=== PATIENT | female | born 1990 | race Caucasian/White ===

== ENCOUNTER 2017-06-16 22:15 | Emergency (ER) | payer BC ==
[~2017-06-16] VITALS: Ht 167.6 cm; Wt 107.2 kg
[~2017-06-16 22:15] MED LIST: DOCU-131 PO; IBUP-1222 PO; OXYC-302 PO
[2017-06-16 22:59] LABS: HEMATOCRIT 41.6 % (34.6-47.8); HEMOGLOBIN 13.9 g/dL (11.7-16.4); WHITE BLOOD COUNT 11.7 x10^3/uL (3.4-10)
[2017-06-16] MEDS ORDERED: ACETAMINOPHEN 500 MG TABLET PO ONE (23:00)
[2017-06-16] MEDS ORDERED: KETOROLAC 30 MG/1 ML IVPush ONE (23:00)
[2017-06-16] MEDS ORDERED: ONDANSETRON 2MG/ML, 2ML IVPush ONE (23:00)
[2017-06-16] MEDS ORDERED: SODIUM CHLORIDE 0.9% 1,000ML IVBOLUS ONE (23:00)
[2017-06-16] MEDS ORDERED: SODIUM CHLORIDE FLUSH 10ML SYR IVF ONE (23:00)
[2017-06-16 23:07] LABS: RAPID INFLUENZA A Negative (Negative); RAPID INFLUENZA B Negative (Negative)
[2017-06-16 23:09] LABS: ASPARTATE AMINO TRANSFERASE 44 U/L (15-37); BLOOD UREA NITROGEN 10 mg/dL (7-18)
[2017-06-16] MEDS ORDERED: KETOROLAC 30 MG/1 ML ONE (23:20)
[2017-06-16] MEDS ORDERED: ACETAMINOPHEN 500 MG TABLET ONE (23:20)
[2017-06-16] MEDS ORDERED: ONDANSETRON 2MG/ML, 2ML ONE (23:21)
[2017-06-16 23:40] VITALS: BP 143/95
== END 2017-06-17 00:36 | disposition home or self-care (01) ==
LOC: ED 23:46
DX: R10.84 Generalized abdominal pain (principal); R11.2 Nausea with vomiting, unspecified
CPT/HCPCS: 36415; 71010; 80053; 84703; 85025; 87400; 96361; 96374; 96375; 99285; J1885; J2405; J7030

== ENCOUNTER 2017-10-30 10:47 | Emergency (ER) | payer BC ==
[~2017-10-30] VITALS: Ht 165.1 cm; Wt 100.3 kg
[2017-10-30 10:53] VITALS: BP 153/98
[2017-10-30] MEDS ORDERED: IBUPROFEN 200 MG TABLET ONE (11:30)
[2017-10-30] MEDS ORDERED: IBUPROFEN 800 MG TABLET PO SCH (11:30)
== END 2017-10-30 11:44 | disposition home or self-care (01) ==
LOC: ED 11:38
DX: J02.9 Acute pharyngitis, unspecified (principal)
CPT/HCPCS: 99283

== ENCOUNTER 2018-10-05 11:10 | Inpatient (IN) | payer BC, OTHER ==
[~2018-10-05] VITALS: Ht 165.1 cm; Wt 82.6 kg
--- NOTE | 2018-10-05 11:39 | NUR ---
PT PRESENTING TO ER FOR EPIGASTRIC PAIN AND VOMITING WHICH STARTED LAST NIGHT. REPORTING SLIGHT BURNING SENSATION. CONNECTED TO MONITORS, VSS. PT UP TO RESTROOM FOR URINE SAMPLE. CALL LIGHT WITHIN REACH. AWAITING ORDERS AT THIS TIME.
--- NOTE | 2018-10-05 11:48 | NUR ---
AT BEDSIDE FOR ASSESSMENT
[2018-10-05] MEDS ORDERED: MAALOX/HYOSCYAMINE/LIDOCAINE 45 ML BTL ONE (11:55)
[2018-10-05] MEDS ORDERED: MAALOX/HYOSCYAMINE/LIDOCAINE 45 ML BTL PO ONE (12:00)
[2018-10-05 12:06] LABS: HCG UR SG 1.043 (1.003-1.030); MICROSCOPIC AUTO
[2018-10-05 12:07] LABS: CULTURE INDICATED? NO
--- NOTE | 2018-10-05 12:10 | NUR ---
PT MEDICATED FOR PAIN. LABS COLLECTED. US AT BEDSIDE.
--- NOTE | 2018-10-05 12:18 | NUR ---
EMISIS X1, PT STATES IT WAS FROM US PUTTING PRESSURE ON EPIGASTRIC AREA AND NOT NAUSEA. DECLINGING NAUSEA MEDICATION AT THIS TIME
--- NOTE | 2018-10-05 12:39 | NUR ---
PT REPORTING AN INCREASE IN EPIGASTRIC PAIN, CRAMPING. MD NOTIFIED, NO ADDITIONAL ORDERS AT THIS TIME
[2018-10-05 12:59] LABS: MEAN CORPUSCULAR HEMOGLOBIN 28.3 pg (27.0-34.8); MEAN CORPUSCULAR HGB CONC 33.3 g/dL (32.4-35.8); MEAN CORPUSCULAR VOLUME 84.9 fL (80-100); MEAN PLATELET VOLUME 9.2 fL (7.4-10.4); PLATELET COUNT 376 x10^3/uL (130-400); RED BLOOD COUNT 4.82 x10^6/uL (3.82-5.3)
--- NOTE | 2018-10-05 13:01 | NUR ---
F/U CALL PLACED TO LAB ON DELAY IN LAB RESULTS, TECH STATES SPECIAL SPIN NEEDING TO BE PREFORMED D/T MILKY PLASMA
[2018-10-05 13:02] LABS: BASOPHILS # (AUTO) 0.05 x10^3/uL (0-0.1); BASOPHILS % (AUTO) 0 % (0-1); EOSINOPHILS # (AUTO) 0.06 x10^3/uL (0-0.4); EOSINOPHILS % (AUTO) 0 % (1-7); LYMPHOCYTES # (AUTO) 1.55 x10^3/uL (1-3.4); LYMPHOCYTES % (AUTO) 12 % (22-44); MD SCAN; MONOCYTES # (AUTO) 0.53 x10^3/uL (0.2-0.8); MONOCYTES % (AUTO) 4 % (2-9); NEUTROPHILS # (AUTO) 10.38 x10^3/uL (1.8-6.8); NEUTROPHILS % (AUTO) 83 % (42-75)
[2018-10-05 13:13] LABS: ALBUMIN 3.4 g/dL (3.4-5.0); ANION GAP 12 mmol/L (5-15); CALCIUM 8.8 mg/dL (8.5-10.1); CHLORIDE 102 mmol/L (98-107); CREATININE 0.58 mg/dL (0.55-1.02)
--- NOTE | 2018-10-05 13:13 | NUR ---
ADDITIONAL ORDERS RECEIVED, LAB AT BEDSIDE
[2018-10-05 13:15] LABS: ALKALINE PHOSPHATASE 156 U/L (45-117); BILIRUBIN,TOTAL 0.4 mg/dL (0.2-1.0); TOTAL PROTEIN 9.1 g/dL (6.4-8.2)
[2018-10-05 13:18] LABS: ALANINE AMINOTRANSFERASE 58 U/L (12-78)
[2018-10-05 13:21] LABS: PH, VENOUS 7.298 pH (7.320-7.420)
[2018-10-05 13:22] LABS: FIO2 RA %
[2018-10-05] MEDS ORDERED: ONDANSETRON 2MG/ML, 2ML ONE ×2 (13:56→19:31)
[2018-10-05] MEDS ORDERED: MORPHINE SULFATE 4 MG/ML, 1ML ONE ×2 (13:57→15:37)
[2018-10-05] MEDS ORDERED: ONDANSETRON 2MG/ML, 2ML IVPush ONE (14:00)
[2018-10-05 14:04] LABS: ACETONE, SERUM Moderate(40mg/dL) mg/dL (Negative)
[2018-10-05] MEDS: MORPHINE SULFATE 4 MG/ML, 1ML IVPush PRN ×2 (14:08→15:42)
--- NOTE | 2018-10-05 14:09 | NUR ---
MD TO BEDSIDE TO UPDATE PT AND FAMILY ON POC. PT TO BE ADMITTED TO [facility]. IV STARTED AND PT MEDICATED FOR PAIN
[2018-10-05] MEDS ORDERED: SODIUM CHLORIDE FLUSH 10ML SYR IVF PRN (14:30)
--- NOTE | 2018-10-05 15:16 | NUR ---
PT GIVEN WATER PER PT REQUEST AND DIET ORDER. FAMILY AT BEDSIDE. CALL LIGHT WITHIN REACH. PT STILL EXPERIENCING PAIN, MD TO BE NOTIFIED.
--- NOTE | 2018-10-05 15:42 | NUR ---
PT CONTINUES TO EXPERIENCE PAIN, SECOND DOSE OF MORPHINE GIVEN AT THIS TIME. VSS. NO OTHER REQUESTS FROM PT AT THIS TIME. CALL LIGHT WITHIN REACH
--- NOTE | 2018-10-05 15:51 | NUR ---
HOSPITALIST TO BEDSIDE FOR ADMIT ASSESSMENT
--- NOTE | 2018-10-05 16:27 | NUR ---
Resting in [facility]. No needs.
[2018-10-05] MEDS ORDERED: LABETALOL 5MG/ML, 20ML IVPush PRN (16:30)
[2018-10-05] MEDS ORDERED: hydrALAzine 20 MG/ML, 1ML IVPush PRN (16:30)
[2018-10-05] MEDS ORDERED: BISACODYL 10 MG SUPP PR PRN (16:30)
[2018-10-05 16:38] LABS: HCT (SEDRATE) 42.9 % (34.6-47.8)
[2018-10-05 17:18] LABS: FREE T4 (FREE THYROXINE) 1.02 ng/dL (0.76-1.46); THYROID STIMULATING HORMONE 0.368 mIU/L (0.358-3.740)
[2018-10-05] MEDS ORDERED: ENOXAPARIN 40 MG/0.4 ML ONE (17:23)
[2018-10-05] MEDS: LACTATED RINGERS 1,000 ML IV SCH ×2 (17:29→22:08)
[2018-10-05] MEDS: ENOXAPARIN 40 MG/0.4 ML SQ SCH (17:29)
--- NOTE | 2018-10-05 17:34 | NUR ---
PT RESTING IN ROOM WITH AT BEDSIDE. VSS. PT CONTINUES TO BE IN PAIN, PRN MEDS TO BE GIVEN. PT CURRENTLY A HOLD FOR MEDICAL. AWAITING A BED TO BECOME AVAILABLE
[2018-10-05 17:49] LABS: TROPONIN I < 0.015 ng/mL (0.000-0.045)
[2018-10-05] MEDS ORDERED: HYDROmorphone 2 MG/ML, 1ML ONE (18:01)
[2018-10-05] MEDS: HYDROmorphone 2 MG/ML, 1ML IVPush PRN ×2 (18:04→21:25)
--- NOTE | 2018-10-05 18:06 | NUR ---
PT MEDICATED FOR PAIN WITH PRN DILAUDID 0.5MG GIVEN TO START PER PROTOCOL
--- NOTE | 2018-10-05 18:46 | NUR ---
PT REPORTING A DECREASE IN PAIN AFTER MEDS, PAIN NOW 2/10
--- NOTE | 2018-10-05 19:33 | NUR ---
PT VOMITTING IN ROOM, ZOFRAN TO BE GIVEN. PT REQUESTING TO FIRST USE RESTROOM, UP WITH STEADY GAIT.
[2018-10-05] MEDS: ONDANSETRON 2MG/ML, 2ML IVPush PRN (19:38)
--- NOTE | 2018-10-05 19:55 | NUR ---
PT BACK IN BED, CONNECTED TO VS MACHINE. NAUSEA CONTROLLED AT THIS TIME. PT NOW REPORTING LEFT SHOULDER PAIN. MD TO BE UPDATED. CALL LIGHT WITHIN REACH.
--- NOTE | 2018-10-05 20:47 | NUR ---
REPORT GIVEN TO SARAI WHIPPLE, PT READY FOR TRANSPORT TO FLOOR
[2018-10-05 21:33] VITALS: BP 129/87
[2018-10-05] MEDS: INSULIN LISPRO 100 UNITS/ML, PEN SQ-INSULIN SCH (22:30)
[2018-10-05 22:33] LABS: TROPONIN I < 0.015 ng/mL (0.000-0.045)
[2018-10-06] MEDS: HYDROmorphone 2 MG/ML, 1ML IVPush PRN ×6 (00:37→19:49)
[2018-10-06 02:37] VITALS: BP 117/79
[2018-10-06] MEDS: ONDANSETRON 2MG/ML, 2ML IVPush PRN (04:01)
[2018-10-06 04:52] LABS: HDL CHOLESTEROL (DIRECT) 36 mg/dL (40-60); TRIGLYCERIDES 3922 mg/dL (50-200)
[2018-10-06 04:53] LABS: CHOL/HDL RATIO 12.9; CHOLESTEROL, TOTAL 465 mg/dL (140-239); HDL CHOL % 8 % (28-40)
[2018-10-06 05:20] LABS: BASOPHILS % (AUTO) 0 % (0-1); EOSINOPHILS % (AUTO) 0 % (1-7); HCT (SEDRATE) 38.3 % (34.6-47.8); LYMPHOCYTES # (AUTO) 1.13 x10^3/uL (1-3.4); LYMPHOCYTES % (AUTO) 10 % (22-44); MD NO; MEAN CORPUSCULAR HEMOGLOBIN 27.7 pg (27.0-34.8); MEAN CORPUSCULAR HGB CONC 32.2 g/dL (32.4-35.8); MEAN PLATELET VOLUME 9.1 fL (7.4-10.4); MONOCYTES # (AUTO) 0.81 x10^3/uL (0.2-0.8); MONOCYTES % (AUTO) 7 % (2-9); NEUTROPHILS % (AUTO) 83 % (42-75); PLATELET COUNT 353 x10^3/uL (130-400); RED BLOOD COUNT 4.46 x10^6/uL (3.82-5.3); RED CELL DISTRIBUTION WIDTH 14.6 % (9.6-15.2)
[2018-10-06 06:34] VITALS: BP 118/81
[2018-10-06] MEDS: PANTOPRAZOLE 40 MG IV IVPush SCH (07:58)
[2018-10-06] MEDS: INSULIN LISPRO 100 UNITS/ML, PEN SQ-INSULIN SCH ×3 (07:59→16:27)
[2018-10-06] MEDS ORDERED: SENNA/DOCUSATE TABLET PO SCH (09:00)
[2018-10-06] MEDS: LACTATED RINGERS 1,000 ML IV SCH (09:28)
[2018-10-06] MEDS ORDERED: INSULIN GLARGINE 100 UNITS/ML, PEN SQ-INSULIN SCH ×2 (10:30→21:00)
[2018-10-06 12:12] VITALS: BP 111/77
[2018-10-06] MEDS: ENOXAPARIN 40 MG/0.4 ML SQ SCH (16:27)
[2018-10-06] MEDS ORDERED: SODIUM CHLORIDE 0.9% 1,000 ML IV SCH (16:30)
[2018-10-06 17:29] LABS: TRIGLYCERIDES 2556 mg/dL (50-200)
[2018-10-06] MEDS ORDERED: MAGNESIUM SULFATE PMX 2GM/50ML 50 ML IV ONE (18:00)
[2018-10-06] MEDS: REGULAR INSULIN 62.5 UNITS in SODIUM CHLORIDE 0.9% 249.375 ML IV PRN (18:34)
[2018-10-06] MEDS ORDERED: CALCIUM GLUCONATE 4.6 MEQ/10 ML IV ONE (20:00)
[2018-10-06] MEDS ORDERED: ALBUMIN HUMAN 5% 3,000 ML IV ONE (21:00)
[2018-10-07] MEDS: HYDROmorphone 2 MG/ML, 1ML IVPush PRN ×3 (01:05→23:10)
[2018-10-07 05:16] LABS: MEAN CORPUSCULAR HGB CONC 32.1 g/dL (32.4-35.8); MEAN CORPUSCULAR VOLUME 87.3 fL (80-100); MEAN PLATELET VOLUME 8.5 fL (7.4-10.4); PLATELET COUNT 374 x10^3/uL (130-400)
[2018-10-07 05:22] LABS: ALBUMIN 3.3 g/dL (3.4-5.0); CALCIUM 8.8 mg/dL (8.5-10.1); CHLORIDE 119 mmol/L (98-107)
[2018-10-07 05:31] LABS: ALANINE AMINOTRANSFERASE 18 U/L (12-78); ALKALINE PHOSPHATASE 63 U/L (45-117); BILIRUBIN,TOTAL 0.7 mg/dL (0.2-1.0); CREATININE 1.65 mg/dL (0.55-1.02); THYROID STIMULATING HORMONE 0.228 mIU/L (0.358-3.740); TOTAL PROTEIN 6.3 g/dL (6.4-8.2); TRIGLYCERIDES 707 mg/dL (50-200)
[2018-10-07 05:38] LABS: MD YES
[2018-10-07 05:42] LABS: BAND#(MANUAL) 2.58 x10^3/uL; BANDS%(MANUAL) 20 % (0-7); LYMPH#(MANUAL) 2.06 x10^3/uL (1-3.4); LYMPHS% (MANUAL) 16 % (22-44); MONOS#(MANUAL) 0.52 x10^3/uL (0.3-2.7); MONOS% (MANUAL) 4 % (2-9); SEG#(MANUAL) 7.74 x10^3/uL (1.8-6.8); SEGS% (MANUAL) 60 % (42-75)
[2018-10-07 05:43] LABS: <PLATELET ESTIMATE> ADEQUATE; <PLT MORPHOLOGY> NORMAL PLT MORPH; <RBC MORPHOLOGY> NORMAL
[2018-10-07 05:54] LABS: BASOPHILS # (AUTO) 0.03 x10^3/uL (0-0.1); BASOPHILS % (AUTO) 0 % (0-1); EOSINOPHILS # (AUTO) 0.01 x10^3/uL (0-0.4); EOSINOPHILS % (AUTO) 0 % (1-7); LYMPHOCYTES # (AUTO) 1.68 x10^3/uL (1-3.4); LYMPHOCYTES % (AUTO) 13 % (22-44); MONOCYTES # (AUTO) 0.23 x10^3/uL (0.2-0.8); MONOCYTES % (AUTO) 2 % (2-9); NEUTROPHILS # (AUTO) 10.97 x10^3/uL (1.8-6.8); NEUTROPHILS % (AUTO) 85 % (42-75)
[2018-10-07 06:06] LABS: ANION GAP 20 mmol/L (5-15)
[2018-10-07] MEDS: PANTOPRAZOLE 40 MG IV IVPush SCH (08:44)
[2018-10-07] MEDS: REGULAR INSULIN 62.5 UNITS in SODIUM CHLORIDE 0.9% 249.375 ML IV PRN ×4 (08:53→23:10)
[2018-10-07] MEDS ORDERED: MAGNESIUM SULFATE PMX 2GM/50ML 50 ML IV ONE (09:00)
[2018-10-07] MEDS ORDERED: SODIUM BICARBONATE 8.4% 100 MEQ in SODIUM CHLORIDE 0.45% 1,000 ML IV SCH (13:00)
[2018-10-07 15:14] LABS: ANION GAP 10 mmol/L (5-15); CALCIUM 9.8 mg/dL (8.5-10.1); CHLORIDE 127 mmol/L (98-107)
[2018-10-07] MEDS ORDERED: SODIUM CHLORIDE 0.9% 1,000 ML IV SCH (16:30)
[2018-10-07] MEDS ORDERED: SODIUM CHLORIDE 0.45% 1,000 ML IV SCH (17:30)
[2018-10-07] MEDS: ENOXAPARIN 40 MG/0.4 ML SQ SCH (17:30)
[2018-10-07 18:58] LABS: ANION GAP 11 mmol/L (5-15); CALCIUM 9.4 mg/dL (8.5-10.1); CHLORIDE 127 mmol/L (98-107)
[2018-10-07] MEDS: D5%-0.45NACL+KCL 40MEQ 1,000 ML IV SCH (19:01)
[2018-10-07 23:24] LABS: ANION GAP 9 mmol/L (5-15); CALCIUM 9.2 mg/dL (8.5-10.1); CHLORIDE 129 mmol/L (98-107); CREATININE 1.26 mg/dL (0.55-1.02)
[2018-10-08] MEDS: REGULAR INSULIN 62.5 UNITS in SODIUM CHLORIDE 0.9% 249.375 ML IV PRN (03:18)
[2018-10-08 03:38] LABS: MEAN CORPUSCULAR HEMOGLOBIN 27.4 pg (27.0-34.8); MEAN CORPUSCULAR HGB CONC 32.4 g/dL (32.4-35.8); MEAN CORPUSCULAR VOLUME 84.4 fL (80-100); MEAN PLATELET VOLUME 7.8 fL (7.4-10.4); PLATELET COUNT 318 x10^3/uL (130-400); RED BLOOD COUNT 4.96 x10^6/uL (3.82-5.3); RED CELL DISTRIBUTION WIDTH 15.6 % (9.6-15.2)
[2018-10-08 04:01] LABS: ANION GAP 8 mmol/L (5-15); CALCIUM 9.2 mg/dL (8.5-10.1); CHLORIDE 129 mmol/L (98-107); CREATININE 1.29 mg/dL (0.55-1.02)
[2018-10-08] MEDS: D5%-0.45NACL+KCL 40MEQ 1,000 ML IV SCH (04:01)
[2018-10-08 04:05] VITALS: BP 123/73
[2018-10-08 04:08] LABS: MD YES
[2018-10-08 04:09] LABS: BAND#(MANUAL) 0.29 x10^3/uL; BANDS%(MANUAL) 3 % (0-7); EOS% (MANUAL) 1 % (1-7); LYMPH#(MANUAL) 1.82 x10^3/uL (1-3.4); LYMPHS% (MANUAL) 19 % (22-44); MONOS#(MANUAL) 0.38 x10^3/uL (0.3-2.7); MONOS% (MANUAL) 4 % (2-9); SEG#(MANUAL) 7.01 x10^3/uL (1.8-6.8); SEGS% (MANUAL) 73 % (42-75)
[2018-10-08 04:10] LABS: <PLATELET ESTIMATE> ADEQUATE; <PLT MORPHOLOGY> NORMAL PLT MORPH; <RBC MORPHOLOGY> NORMAL
[2018-10-08 07:19] LABS: ALANINE AMINOTRANSFERASE 13 U/L (12-78); ALBUMIN 2.2 g/dL (3.4-5.0); ANION GAP 8 mmol/L (5-15); CALCIUM 9.4 mg/dL (8.5-10.1); CHLORIDE 127 mmol/L (98-107); CREATININE 1.45 mg/dL (0.55-1.02)
[2018-10-08 07:21] LABS: ALKALINE PHOSPHATASE 78 U/L (45-117); BILIRUBIN,TOTAL 0.5 mg/dL (0.2-1.0); TOTAL PROTEIN 5.7 g/dL (6.4-8.2); TRIGLYCERIDES 947 mg/dL (50-200)
[2018-10-08] MEDS: PANTOPRAZOLE 40 MG IV IVPush SCH (07:46)
[2018-10-08] MEDS ORDERED: POTASSIUM CHLORIDE 40 MEQ in SODIUM CHLORIDE 0.9% 100 ML IV ONE (08:30)
[2018-10-08] MEDS ORDERED: POTASSIUM CHLORIDE 40 MEQ in DEXTROSE 5% 1,000 ML IV SCH (08:30)
[2018-10-08] MEDS: REGULAR INSULIN 100 UNITS in SODIUM CHLORIDE 0.9% 99 ML IV PRN ×2 (08:52→18:14)
[2018-10-08 11:55] LABS: ANION GAP 6 mmol/L (5-15); CALCIUM 9.4 mg/dL (8.5-10.1); CHLORIDE 131 mmol/L (98-107); CREATININE 1.23 mg/dL (0.55-1.02)
[2018-10-08 15:12] LABS: CHLORIDE 130 mmol/L (98-107)
[2018-10-08 15:18] LABS: ANION GAP 5 mmol/L (5-15); CALCIUM 9.5 mg/dL (8.5-10.1); CREATININE 1.19 mg/dL (0.55-1.02)
[2018-10-08] MEDS ORDERED: POTASSIUM PHOSPHATE 44 MEQ in SODIUM CHLORIDE 0.9% 500 ML IV ONE (16:00)
[2018-10-08] MEDS: ENOXAPARIN 40 MG/0.4 ML SQ SCH (16:30)
[2018-10-08] MEDS: POTASSIUM CHLORIDE 40 MEQ in DEXTROSE 5% 1,000 ML IV SCH (19:01)
[2018-10-08 19:02] LABS: ANION GAP 6 mmol/L (5-15); CALCIUM 9.2 mg/dL (8.5-10.1); CHLORIDE 129 mmol/L (98-107)
[2018-10-08 22:50] LABS: ANION GAP 8 mmol/L (5-15); CHLORIDE 129 mmol/L (98-107); CREATININE 1.27 mg/dL (0.55-1.02)
[2018-10-09 02:59] LABS: MEAN CORPUSCULAR HEMOGLOBIN 27.5 pg (27.0-34.8); MEAN CORPUSCULAR HGB CONC 32.8 g/dL (32.4-35.8); MEAN CORPUSCULAR VOLUME 84.1 fL (80-100); MEAN PLATELET VOLUME 7.3 fL (7.4-10.4); PLATELET COUNT 302 x10^3/uL (130-400); RED BLOOD COUNT 4.28 x10^6/uL (3.82-5.3); RED CELL DISTRIBUTION WIDTH 15.6 % (9.6-15.2)
[2018-10-09 03:02] LABS: ALBUMIN 2.2 g/dL (3.4-5.0); ANION GAP 7 mmol/L (5-15); CALCIUM 9.2 mg/dL (8.5-10.1); CHLORIDE 128 mmol/L (98-107)
[2018-10-09 03:05] LABS: ALANINE AMINOTRANSFERASE 13 U/L (12-78); ALKALINE PHOSPHATASE 87 U/L (45-117); BILIRUBIN,TOTAL 0.8 mg/dL (0.2-1.0); CREATININE 1.22 mg/dL (0.55-1.02); TOTAL PROTEIN 5.9 g/dL (6.4-8.2); TRIGLYCERIDES 754 mg/dL (50-200)
[2018-10-09 03:10] LABS: MD YES
[2018-10-09] MEDS: REGULAR INSULIN 100 UNITS in SODIUM CHLORIDE 0.9% 99 ML IV PRN ×2 (03:18→17:28)
[2018-10-09 03:20] LABS: <PLATELET ESTIMATE> ADEQUATE; <PLT MORPHOLOGY> NORMAL PLT MORPH; <RBC MORPHOLOGY> NORMAL; BAND#(MANUAL) 0.69 x10^3/uL; BANDS%(MANUAL) 7 % (0-7); LYMPH#(MANUAL) 2.06 x10^3/uL (1-3.4); LYMPHS% (MANUAL) 21 % (22-44); METAMYELOCYTES% (MANUAL) 2 % (0-1); MONOS#(MANUAL) 0.39 x10^3/uL (0.3-2.7); MONOS% (MANUAL) 4 % (2-9); NRBC % (MANUAL) 1 % (0-1); SEG#(MANUAL) 6.47 x10^3/uL (1.8-6.8); SEGS% (MANUAL) 66 % (42-75)
[2018-10-09 04:00] VITALS: BP 141/70
[2018-10-09] MEDS: POTASSIUM CHLORIDE 40 MEQ in DEXTROSE 5% 1,000 ML IV SCH ×4 (06:27→17:55)
[2018-10-09 07:34] LABS: ANION GAP 8 mmol/L (5-15); CHLORIDE 127 mmol/L (98-107); CREATININE 1.21 mg/dL (0.55-1.02)
[2018-10-09] MEDS: PANTOPRAZOLE 40 MG IV IVPush SCH (08:02)
[2018-10-09] MEDS ORDERED: POTASSIUM CHLORIDE 40 MEQ in DEXTROSE 5% 1,000 ML IV SCH (08:30)
[2018-10-09 08:57] LABS: TRIGLYCERIDES 665 mg/dL (50-200)
[2018-10-09] MEDS: ENOXAPARIN 40 MG/0.4 ML SQ SCH (15:53)
[2018-10-10] MEDS: POTASSIUM CHLORIDE 40 MEQ in DEXTROSE 5% 1,000 ML IV SCH ×2 (01:16→07:58)
[2018-10-10] MEDS: REGULAR INSULIN 100 UNITS in SODIUM CHLORIDE 0.9% 99 ML IV PRN (03:51)
[2018-10-10 04:00] VITALS: BP 123/66
[2018-10-10 04:27] LABS: MEAN CORPUSCULAR HEMOGLOBIN 27.5 pg (27.0-34.8); MEAN CORPUSCULAR HGB CONC 32.5 g/dL (32.4-35.8); MEAN CORPUSCULAR VOLUME 84.5 fL (80-100); MEAN PLATELET VOLUME 6.9 fL (7.4-10.4); PLATELET COUNT 291 x10^3/uL (130-400); RED BLOOD COUNT 4.14 x10^6/uL (3.82-5.3); RED CELL DISTRIBUTION WIDTH 15.1 % (9.6-15.2)
[2018-10-10 04:37] LABS: ANION GAP 8 mmol/L (5-15); CALCIUM 8.9 mg/dL (8.5-10.1); CHLORIDE 116 mmol/L (98-107); CREATININE 1.02 mg/dL (0.55-1.02)
[2018-10-10 04:38] LABS: ALANINE AMINOTRANSFERASE 13 U/L (12-78); ALBUMIN 2.1 g/dL (3.4-5.0)
[2018-10-10 04:41] LABS: ALKALINE PHOSPHATASE 107 U/L (45-117); BILIRUBIN,TOTAL 0.7 mg/dL (0.2-1.0); TOTAL PROTEIN 6.2 g/dL (6.4-8.2); TRIGLYCERIDES 467 mg/dL (50-200)
[2018-10-10 05:39] LABS: MD YES
[2018-10-10 05:40] LABS: BAND#(MANUAL) 0.21 x10^3/uL; BANDS%(MANUAL) 2 % (0-7); EOS#(MANUAL) 0.11 x10^3/uL (0.0-0.4); EOS% (MANUAL) 1 % (1-7); METAMYELOCYTES# (MANUAL) 0.11 x10^3/uL (0-0); METAMYELOCYTES% (MANUAL) 1 % (0-1)
[2018-10-10 05:41] LABS: <RBC MORPHOLOGY> NORMAL; LYMPH#(MANUAL) 2.63 x10^3/uL (1-3.4); LYMPHS% (MANUAL) 25 % (22-44); MONOS#(MANUAL) 0.95 x10^3/uL (0.3-2.7); MONOS% (MANUAL) 9 % (2-9); SEG#(MANUAL) 6.51 x10^3/uL (1.8-6.8); SEGS% (MANUAL) 62 % (42-75)
[2018-10-10 05:42] LABS: <PLATELET ESTIMATE> ADEQUATE; <PLT MORPHOLOGY> NORMAL PLT MORPH
[2018-10-10] MEDS: PANTOPRAZOLE 40 MG IV IVPush SCH (07:58)
[2018-10-10 09:57] LABS: ABSOLUTE RETICS # 0.021 x10^6/uL (0.5-2.5); RED BLOOD COUNT 4.01 x10^6/uL (3.82-5.3); RETICULOCYTE COUNT % 0.51 % (0.5-1.5)
[2018-10-10] MEDS: HYDROmorphone 2 MG/ML, 1ML IVPush PRN ×3 (10:35→20:33)
[2018-10-10 10:42] LABS: MICROSCOPIC INDICATED
[2018-10-10 10:55] LABS: CREATININE,URINE RANDOM 49.2 mg/dL
[2018-10-10] MEDS ORDERED: GLUCAGON 1 MG IM PRN (16:00)
[2018-10-10] MEDS ORDERED: DEXTROSE 4 GM TAB.CHEW PO PRN (16:00)
[2018-10-10] MEDS ORDERED: MAGNESIUM SULFATE PMX 2GM/50ML 50 ML IV ONE (16:00)
[2018-10-10] MEDS ORDERED: DEXTROSE 50%, 50ML SYRINGE IVPush PRN (16:00)
[2018-10-10] MEDS: ENOXAPARIN 40 MG/0.4 ML SQ SCH (16:21)
[2018-10-10] MEDS: INSULIN LISPRO 100 UNITS/ML, PEN SQ-INSULIN SCH ×2 (16:27→20:34)
[2018-10-10] MEDS: INSULIN GLARGINE 100 UNITS/ML, PEN SQ-INSULIN SCH (16:28)
[2018-10-10 17:10] LABS: CLOSTRIDIUM DIFFICILE ANTIGEN NEGATIVE; CLOSTRIDIUM DIFFICILE TOXIN NEGATIVE (Negative)
[2018-10-10] MEDS: ONDANSETRON 2MG/ML, 2ML IVPush PRN (17:14)
[2018-10-10 19:27] VITALS: BP 136/64
[2018-10-10] MEDS: GEMFIBROZIL 600 MG TABLET PO SCH (20:33)
[2018-10-10] MEDS: SODIUM CHLORIDE FLUSH 10ML SYR IVF SCH (20:34)
[2018-10-10] MEDS ORDERED: METOCLOPRAMIDE 5 MG/ML, 2ML IVPush PRN (21:30)
[2018-10-10] MEDS ORDERED: morphine SULFATE 10 MG/ML, 1ML IVPush PRN (21:30)
[2018-10-10] MEDS: morphine SULFATE 10 MG/ML, 1ML IVPush PRN (23:43)
[2018-10-10 23:50] VITALS: BP 131/92
[2018-10-11 03:32] VITALS: BP 128/90
[2018-10-11] MEDS: morphine SULFATE 10 MG/ML, 1ML IVPush PRN ×2 (03:49→14:03)
[2018-10-11 05:59] LABS: MEAN CORPUSCULAR HEMOGLOBIN 27.8 pg (27.0-34.8); MEAN CORPUSCULAR HGB CONC 33.7 g/dL (32.4-35.8); MEAN CORPUSCULAR VOLUME 82.7 fL (80-100); MEAN PLATELET VOLUME 6.9 fL (7.4-10.4); PLATELET COUNT 274 x10^3/uL (130-400); RED BLOOD COUNT 4.22 x10^6/uL (3.82-5.3); RED CELL DISTRIBUTION WIDTH 14.5 % (9.6-15.2)
[2018-10-11 06:04] LABS: CHLORIDE 109 mmol/L (98-107)
[2018-10-11 06:14] LABS: ALANINE AMINOTRANSFERASE 12 U/L (12-78); ALBUMIN 2.1 g/dL (3.4-5.0); ALKALINE PHOSPHATASE 115 U/L (45-117); ANION GAP 10 mmol/L (5-15); BILIRUBIN,TOTAL 0.5 mg/dL (0.2-1.0); CALCIUM 8.2 mg/dL (8.5-10.1); TOTAL PROTEIN 6.5 g/dL (6.4-8.2); TRIGLYCERIDES 406 mg/dL (50-200)
[2018-10-11 06:46] LABS: MD YES
[2018-10-11 06:49] LABS: <RBC MORPHOLOGY> NORMAL; BAND#(MANUAL) 1.58 x10^3/uL; BANDS%(MANUAL) 21 % (0-7); EOS#(MANUAL) 0.38 x10^3/uL (0.0-0.4); EOS% (MANUAL) 5 % (1-7); LYMPHS% (MANUAL) 20 % (22-44); METAMYELOCYTES# (MANUAL) 0.15 x10^3/uL (0-0); METAMYELOCYTES% (MANUAL) 2 % (0-1); MONOS% (MANUAL) 12 % (2-9); SEGS% (MANUAL) 40 % (42-75)
[2018-10-11 06:50] LABS: <PLATELET ESTIMATE> ADEQUATE; <PLT MORPHOLOGY> NORMAL PLT MORPH
[2018-10-11 07:01] VITALS: BP 109/77
[2018-10-11] MEDS: SODIUM CHLORIDE FLUSH 10ML SYR IVF SCH ×2 (08:00→20:11)
[2018-10-11] MEDS: INSULIN LISPRO 100 UNITS/ML, PEN SQ-INSULIN SCH ×4 (08:40→20:11)
[2018-10-11] MEDS: GEMFIBROZIL 600 MG TABLET PO SCH ×2 (08:41→20:10)
[2018-10-11] MEDS: INSULIN GLARGINE 100 UNITS/ML, PEN SQ-INSULIN SCH ×2 (08:41→20:10)
[2018-10-11] MEDS: ERGOCALCIFEROL 50,000 UNIT CAPSULE PO SCH (12:18)
[2018-10-11] MEDS: SODIUM BICARBONATE 650 MG TABLET PO SCH ×3 (12:18→20:10)
[2018-10-11 12:35] VITALS: BP 105/71
[2018-10-11] MEDS ORDERED: MORPHINE SULFATE 4 MG/ML, 1ML ONE (13:59)
[2018-10-11] MEDS: ENOXAPARIN 40 MG/0.4 ML SQ SCH (16:10)
[2018-10-11] MEDS: FERROUS GLUCONATE 324 MG TABLET PO SCH (17:17)
[2018-10-11 20:16] VITALS: BP 110/77
[2018-10-12 01:39] VITALS: BP 113/78
[2018-10-12 04:00] VITALS: BP 119/69
[2018-10-12] MEDS: morphine SULFATE 10 MG/ML, 1ML IVPush PRN (05:42)
[2018-10-12 06:41] LABS: MEAN CORPUSCULAR HEMOGLOBIN 28.5 pg (27.0-34.8); MEAN CORPUSCULAR HGB CONC 34.1 g/dL (32.4-35.8); MEAN CORPUSCULAR VOLUME 83.4 fL (80-100); MEAN PLATELET VOLUME 7.2 fL (7.4-10.4); PLATELET COUNT 327 x10^3/uL (130-400); RED CELL DISTRIBUTION WIDTH 14.4 % (9.6-15.2)
[2018-10-12 06:53] LABS: ALANINE AMINOTRANSFERASE 14 U/L (12-78); ALBUMIN 2.2 g/dL (3.4-5.0); ANION GAP 7 mmol/L (5-15); CHLORIDE 112 mmol/L (98-107); CREATININE 0.92 mg/dL (0.55-1.02)
[2018-10-12 07:01] LABS: MD YES
[2018-10-12 07:04] LABS: ALKALINE PHOSPHATASE 132 U/L (45-117); BANDS%(MANUAL) 9 % (0-7); BILIRUBIN,TOTAL 0.4 mg/dL (0.2-1.0); EOS#(MANUAL) 0.33 x10^3/uL (0.0-0.4); EOS% (MANUAL) 3 % (1-7); LYMPHS% (MANUAL) 18 % (22-44); MONOS% (MANUAL) 9 % (2-9); MYELOCYTES# (MANUAL) 0.22 x10^3/uL (0-0); MYELOCYTES% (MANUAL) 2 % (0-0); SEG#(MANUAL) 6.55 x10^3/uL (1.8-6.8); SEGS% (MANUAL) 59 % (42-75); TOTAL PROTEIN 6.9 g/dL (6.4-8.2); TRIGLYCERIDES 374 mg/dL (50-200)
[2018-10-12 07:05] VITALS: BP 109/67
[2018-10-12 07:05] LABS: <PLATELET ESTIMATE> ADEQUATE; <PLT MORPHOLOGY> NORMAL PLT MORPH; <RBC MORPHOLOGY> NORMAL
[2018-10-12] MEDS: INSULIN GLARGINE 100 UNITS/ML, PEN SQ-INSULIN SCH ×2 (08:16→20:48)
[2018-10-12] MEDS: INSULIN LISPRO 100 UNITS/ML, PEN SQ-INSULIN SCH ×4 (08:17→20:18)
[2018-10-12] MEDS: SODIUM BICARBONATE 650 MG TABLET PO SCH ×3 (08:17→20:47)
[2018-10-12] MEDS: SODIUM CHLORIDE FLUSH 10ML SYR IVF SCH ×2 (08:17→20:47)
[2018-10-12] MEDS: FERROUS GLUCONATE 324 MG TABLET PO SCH ×2 (08:17→17:11)
[2018-10-12] MEDS: GEMFIBROZIL 600 MG TABLET PO SCH ×2 (08:17→20:47)
[2018-10-12] MEDS: ENOXAPARIN 40 MG/0.4 ML SQ SCH (17:11)
[2018-10-12 20:27] VITALS: BP 108/74
[2018-10-12 21:11] VITALS: BP 168/70
[2018-10-12] MEDS: ACETAMINOPHEN 325 MG TABLET PO PRN (22:19)
[2018-10-13 01:38] VITALS: BP 111/77
[2018-10-13 05:16] LABS: MEAN CORPUSCULAR HEMOGLOBIN 27.7 pg (27.0-34.8); MEAN CORPUSCULAR VOLUME 84.1 fL (80-100); MEAN PLATELET VOLUME 7.3 fL (7.4-10.4); PLATELET COUNT 400 x10^3/uL (130-400); RED BLOOD COUNT 4.19 x10^6/uL (3.82-5.3); RED CELL DISTRIBUTION WIDTH 14.5 % (9.6-15.2)
[2018-10-13 05:20] LABS: ANION GAP 10 mmol/L (5-15); CHLORIDE 108 mmol/L (98-107)
[2018-10-13 05:22] LABS: CREATININE 0.88 mg/dL (0.55-1.02); TRIGLYCERIDES 317 mg/dL (50-200)
[2018-10-13 05:37] LABS: MD YES
[2018-10-13 05:39] LABS: <PLATELET ESTIMATE> ADEQUATE; <PLT MORPHOLOGY> NORMAL PLT MORPH; <RBC MORPHOLOGY> NORMAL; BAND#(MANUAL) 1.09 x10^3/uL; BANDS%(MANUAL) 9 % (0-7); EOS#(MANUAL) 0.12 x10^3/uL (0.0-0.4); EOS% (MANUAL) 1 % (1-7); LYMPHS% (MANUAL) 24 % (22-44); MONOS#(MANUAL) 1.09 x10^3/uL (0.3-2.7); MONOS% (MANUAL) 9 % (2-9); SEGS% (MANUAL) 57 % (42-75)
[2018-10-13 07:14] VITALS: BP 111/77
[2018-10-13] MEDS: INSULIN GLARGINE 100 UNITS/ML, PEN SQ-INSULIN SCH ×2 (08:28→22:00)
[2018-10-13] MEDS: INSULIN LISPRO 100 UNITS/ML, PEN SQ-INSULIN SCH ×4 (08:29→21:59)
[2018-10-13] MEDS: SODIUM BICARBONATE 650 MG TABLET PO SCH ×3 (08:29→21:58)
[2018-10-13] MEDS: GEMFIBROZIL 600 MG TABLET PO SCH ×2 (08:29→21:58)
[2018-10-13] MEDS: FERROUS GLUCONATE 324 MG TABLET PO SCH ×2 (08:29→17:12)
[2018-10-13] MEDS: SODIUM CHLORIDE FLUSH 10ML SYR IVF SCH ×2 (08:29→21:59)
[2018-10-13] MEDS ORDERED: POTASSIUM CHLORIDE 20 MEQ TAB.ER.PRT PO ONE ×2 (11:00→16:00)
[2018-10-13 12:38] VITALS: BP 99/75
[2018-10-13 15:33] LABS: ANION GAP 11 mmol/L (5-15); CALCIUM 9.5 mg/dL (8.5-10.1); CHLORIDE 105 mmol/L (98-107); CREATININE 0.81 mg/dL (0.55-1.02)
[2018-10-13] MEDS: ACETAMINOPHEN 325 MG TABLET PO PRN (15:52)
[2018-10-13] MEDS: ENOXAPARIN 40 MG/0.4 ML SQ SCH (17:12)
[2018-10-13 19:34] VITALS: BP 102/70
[2018-10-14 02:00] VITALS: BP 97/59
[2018-10-14 05:32] LABS: BASOPHILS # (AUTO) 0.03 x10^3/uL (0-0.1); BASOPHILS % (AUTO) 0 % (0-1); EOSINOPHILS # (AUTO) 0.43 x10^3/uL (0-0.4); EOSINOPHILS % (AUTO) 3 % (1-7); LYMPHOCYTES # (AUTO) 2.11 x10^3/uL (1-3.4); LYMPHOCYTES % (AUTO) 16 % (22-44); MD NO; MEAN CORPUSCULAR HEMOGLOBIN 28.2 pg (27.0-34.8); MEAN CORPUSCULAR HGB CONC 33.7 g/dL (32.4-35.8); MEAN CORPUSCULAR VOLUME 83.9 fL (80-100); MEAN PLATELET VOLUME 7.3 fL (7.4-10.4); MONOCYTES # (AUTO) 0.83 x10^3/uL (0.2-0.8); MONOCYTES % (AUTO) 6 % (2-9); NEUTROPHILS # (AUTO) 9.68 x10^3/uL (1.8-6.8); NEUTROPHILS % (AUTO) 74 % (42-75); PLATELET COUNT 466 x10^3/uL (130-400); RED BLOOD COUNT 4.12 x10^6/uL (3.82-5.3); RED CELL DISTRIBUTION WIDTH 14.4 % (9.6-15.2)
[2018-10-14 05:41] LABS: ANION GAP 8 mmol/L (5-15); CALCIUM 9.1 mg/dL (8.5-10.1); CHLORIDE 107 mmol/L (98-107)
[2018-10-14 05:42] LABS: CREATININE 0.77 mg/dL (0.55-1.02)
[2018-10-14] MEDS: INSULIN LISPRO 100 UNITS/ML, PEN SQ-INSULIN SCH ×4 (07:00→21:00)
[2018-10-14 07:18] VITALS: BP 110/70
[2018-10-14] MEDS: GEMFIBROZIL 600 MG TABLET PO SCH ×2 (09:08→21:31)
[2018-10-14] MEDS: INSULIN GLARGINE 100 UNITS/ML, PEN SQ-INSULIN SCH ×2 (09:08→21:31)
[2018-10-14] MEDS: SODIUM CHLORIDE FLUSH 10ML SYR IVF SCH ×2 (09:08→21:00)
[2018-10-14] MEDS: SODIUM BICARBONATE 650 MG TABLET PO SCH ×3 (09:08→21:31)
[2018-10-14] MEDS: FERROUS GLUCONATE 324 MG TABLET PO SCH ×2 (09:08→16:29)
[2018-10-14 10:39] LABS: MICROSCOPIC INDICATED
[2018-10-14 11:09] LABS: CULTURE INDICATED? YES
[2018-10-14] MEDS: ACETAMINOPHEN 325 MG TABLET PO PRN ×2 (12:30→23:10)
[2018-10-14 13:47] VITALS: BP 113/78
[2018-10-14] MEDS: ENOXAPARIN 40 MG/0.4 ML SQ SCH (16:29)
[2018-10-14 19:11] VITALS: BP 110/74
[2018-10-14] MEDS ORDERED: PLEASE ENTER ALLERGIES MC SCH (22:30)
[2018-10-14] MEDS: CEFTRIAXONE PMX 1GM/50ML 50 ML IV SCH (23:40)
[2018-10-15 02:46] VITALS: BP 106/69
[2018-10-15] MEDS: ACETAMINOPHEN 325 MG TABLET PO PRN ×3 (05:36→21:06)
[2018-10-15 05:43] LABS: BASOPHILS # (AUTO) 0.03 x10^3/uL (0-0.1); BASOPHILS % (AUTO) 0 % (0-1); EOSINOPHILS # (AUTO) 0.19 x10^3/uL (0-0.4); EOSINOPHILS % (AUTO) 1 % (1-7); LYMPHOCYTES # (AUTO) 2.26 x10^3/uL (1-3.4); LYMPHOCYTES % (AUTO) 17 % (22-44); MD NO; MEAN CORPUSCULAR HEMOGLOBIN 28.1 pg (27.0-34.8); MEAN CORPUSCULAR HGB CONC 33.7 g/dL (32.4-35.8); MEAN CORPUSCULAR VOLUME 83.4 fL (80-100); MEAN PLATELET VOLUME 7.5 fL (7.4-10.4); MONOCYTES # (AUTO) 0.76 x10^3/uL (0.2-0.8); MONOCYTES % (AUTO) 6 % (2-9); NEUTROPHILS # (AUTO) 10.38 x10^3/uL (1.8-6.8); NEUTROPHILS % (AUTO) 76 % (42-75); PLATELET COUNT 490 x10^3/uL (130-400); RED BLOOD COUNT 4.04 x10^6/uL (3.82-5.3); RED CELL DISTRIBUTION WIDTH 14.2 % (9.6-15.2)
[2018-10-15 05:57] LABS: ANION GAP 8 mmol/L (5-15); CALCIUM 9.4 mg/dL (8.5-10.1); CHLORIDE 106 mmol/L (98-107); CREATININE 0.77 mg/dL (0.55-1.02)
[2018-10-15 05:58] LABS: HCT (SEDRATE) 33.7 % (34.6-47.8)
[2018-10-15] MEDS: INSULIN LISPRO 100 UNITS/ML, PEN SQ-INSULIN SCH ×4 (07:00→21:00)
[2018-10-15 07:07] VITALS: BP 111/79
[2018-10-15] MEDS: GEMFIBROZIL 600 MG TABLET PO SCH ×2 (08:46→21:06)
[2018-10-15] MEDS: SODIUM BICARBONATE 650 MG TABLET PO SCH ×3 (08:46→21:06)
[2018-10-15] MEDS: INSULIN GLARGINE 100 UNITS/ML, PEN SQ-INSULIN SCH ×2 (08:46→21:06)
[2018-10-15] MEDS: SODIUM CHLORIDE FLUSH 10ML SYR IVF SCH ×2 (08:46→21:07)
[2018-10-15] MEDS: FERROUS GLUCONATE 324 MG TABLET PO SCH ×2 (08:46→16:16)
[2018-10-15] MEDS ORDERED: POTASSIUM CHLORIDE 20 MEQ TAB.ER.PRT PO ONE (12:30)
[2018-10-15 13:59] VITALS: BP 114/72
[2018-10-15] MEDS: ENOXAPARIN 40 MG/0.4 ML SQ SCH (16:16)
[2018-10-15 19:25] VITALS: BP 98/72
[2018-10-15] MEDS: CEFTRIAXONE PMX 1GM/50ML 50 ML IV SCH (23:16)
[2018-10-16 02:06] VITALS: BP 105/74
[2018-10-16 05:37] LABS: HCT (SEDRATE) 34.3 % (34.6-47.8)
[2018-10-16 05:38] LABS: BASOPHILS # (AUTO) 0.03 x10^3/uL (0-0.1); BASOPHILS % (AUTO) 0 % (0-1); EOSINOPHILS # (AUTO) 0.19 x10^3/uL (0-0.4); EOSINOPHILS % (AUTO) 2 % (1-7); LYMPHOCYTES # (AUTO) 1.98 x10^3/uL (1-3.4); LYMPHOCYTES % (AUTO) 18 % (22-44); MD NO; MEAN CORPUSCULAR HEMOGLOBIN 27.4 pg (27.0-34.8); MEAN CORPUSCULAR HGB CONC 32.6 g/dL (32.4-35.8); MEAN CORPUSCULAR VOLUME 84.2 fL (80-100); MEAN PLATELET VOLUME 7.9 fL (7.4-10.4); MONOCYTES # (AUTO) 0.59 x10^3/uL (0.2-0.8); MONOCYTES % (AUTO) 6 % (2-9); NEUTROPHILS # (AUTO) 7.97 x10^3/uL (1.8-6.8); NEUTROPHILS % (AUTO) 74 % (42-75); PLATELET COUNT 485 x10^3/uL (130-400); RED BLOOD COUNT 4.11 x10^6/uL (3.82-5.3); RED CELL DISTRIBUTION WIDTH 14.5 % (9.6-15.2)
[2018-10-16 05:46] LABS: ANION GAP 9 mmol/L (5-15); CALCIUM 9.1 mg/dL (8.5-10.1); CHLORIDE 107 mmol/L (98-107); CREATININE 0.72 mg/dL (0.55-1.02); TRIGLYCERIDES 269 mg/dL (50-200)
[2018-10-16 06:36] VITALS: BP 109/79
[2018-10-16] MEDS: INSULIN LISPRO 100 UNITS/ML, PEN SQ-INSULIN SCH ×4 (07:00→20:48)
[2018-10-16] MEDS: SODIUM BICARBONATE 650 MG TABLET PO SCH ×3 (08:28→20:47)
[2018-10-16] MEDS: FERROUS GLUCONATE 324 MG TABLET PO SCH ×2 (08:28→15:58)
[2018-10-16] MEDS: GEMFIBROZIL 600 MG TABLET PO SCH ×2 (08:28→20:47)
[2018-10-16] MEDS: INSULIN GLARGINE 100 UNITS/ML, PEN SQ-INSULIN SCH ×2 (08:28→20:48)
[2018-10-16] MEDS: SODIUM CHLORIDE FLUSH 10ML SYR IVF SCH ×2 (08:29→20:49)
[2018-10-16] MEDS: ACETAMINOPHEN 325 MG TABLET PO PRN ×3 (08:47→23:37)
[2018-10-16] MEDS: ENOXAPARIN 40 MG/0.4 ML SQ SCH (16:04)
[2018-10-16 20:00] VITALS: BP 112/86
[2018-10-16] MEDS: NITROFURANTOIN (MACROBID) 100 MG CAPSULE PO SCH (22:30)
[2018-10-17 00:20] VITALS: BP 106/72
[2018-10-17 01:57] VITALS: BP 114/78
[2018-10-17 05:29] LABS: BASOPHILS # (AUTO) 0.03 x10^3/uL (0-0.1); BASOPHILS % (AUTO) 0 % (0-1); EOSINOPHILS # (AUTO) 0.23 x10^3/uL (0-0.4); EOSINOPHILS % (AUTO) 2 % (1-7); LYMPHOCYTES # (AUTO) 2.29 x10^3/uL (1-3.4); LYMPHOCYTES % (AUTO) 23 % (22-44); MD NO; MEAN CORPUSCULAR HGB CONC 33.3 g/dL (32.4-35.8); MEAN PLATELET VOLUME 7.2 fL (7.4-10.4); MONOCYTES # (AUTO) 0.57 x10^3/uL (0.2-0.8); MONOCYTES % (AUTO) 6 % (2-9); NEUTROPHILS % (AUTO) 69 % (42-75); PLATELET COUNT 597 x10^3/uL (130-400); RED BLOOD COUNT 3.88 x10^6/uL (3.82-5.3); RED CELL DISTRIBUTION WIDTH 14.3 % (9.6-15.2)
[2018-10-17 05:33] LABS: ANION GAP 8 mmol/L (5-15); CALCIUM 9.1 mg/dL (8.5-10.1); CHLORIDE 106 mmol/L (98-107)
[2018-10-17 05:45] LABS: CREATININE 0.71 mg/dL (0.55-1.02); TRIGLYCERIDES 261 mg/dL (50-200)
[2018-10-17 06:07] LABS: HCT (SEDRATE) 32.6 % (34.6-47.8)
[2018-10-17] MEDS: INSULIN LISPRO 100 UNITS/ML, PEN SQ-INSULIN SCH ×4 (07:00→20:08)
[2018-10-17 08:36] VITALS: BP 113/76
[2018-10-17] MEDS: NITROFURANTOIN (MACROBID) 100 MG CAPSULE PO SCH (09:00)
[2018-10-17] MEDS: FERROUS GLUCONATE 324 MG TABLET PO SCH ×2 (09:30→16:03)
[2018-10-17] MEDS: GEMFIBROZIL 600 MG TABLET PO SCH ×2 (09:30→20:08)
[2018-10-17] MEDS: SODIUM CHLORIDE FLUSH 10ML SYR IVF SCH ×2 (09:30→20:09)
[2018-10-17] MEDS: SODIUM BICARBONATE 650 MG TABLET PO SCH ×3 (09:30→20:08)
[2018-10-17] MEDS: INSULIN GLARGINE 100 UNITS/ML, PEN SQ-INSULIN SCH ×2 (10:20→20:08)
[2018-10-17 11:03] LABS: MICROSCOPIC NOT IND
[2018-10-17 11:07] LABS: CULTURE INDICATED? NO
[2018-10-17 14:19] VITALS: BP 113/77
[2018-10-17] MEDS: ACETAMINOPHEN 325 MG TABLET PO PRN (15:20)
[2018-10-17] MEDS: ENOXAPARIN 40 MG/0.4 ML SQ SCH (16:03)
[2018-10-17 20:00] VITALS: BP 113/80
[2018-10-18] MEDS: ACETAMINOPHEN 325 MG TABLET PO PRN (01:15)
[2018-10-18 02:00] VITALS: BP 106/72
[2018-10-18 06:57] LABS: BASOPHILS # (AUTO) 0.03 x10^3/uL (0-0.1); BASOPHILS % (AUTO) 0 % (0-1); EOSINOPHILS % (AUTO) 2 % (1-7); LYMPHOCYTES % (AUTO) 22 % (22-44); MD NO; MEAN CORPUSCULAR HEMOGLOBIN 27.4 pg (27.0-34.8); MEAN CORPUSCULAR HGB CONC 32.9 g/dL (32.4-35.8); MEAN CORPUSCULAR VOLUME 83.5 fL (80-100); MEAN PLATELET VOLUME 7.1 fL (7.4-10.4); MONOCYTES # (AUTO) 0.53 x10^3/uL (0.2-0.8); MONOCYTES % (AUTO) 5 % (2-9); NEUTROPHILS # (AUTO) 8.14 x10^3/uL (1.8-6.8); NEUTROPHILS % (AUTO) 71 % (42-75); PLATELET COUNT 665 x10^3/uL (130-400); RED BLOOD COUNT 3.78 x10^6/uL (3.82-5.3); RED CELL DISTRIBUTION WIDTH 14.3 % (9.6-15.2)
[2018-10-18 06:58] LABS: HCT (SEDRATE) 34.3 % (34.6-47.8)
[2018-10-18 07:09] LABS: ANION GAP 9 mmol/L (5-15); CHLORIDE 106 mmol/L (98-107); CREATININE 0.61 mg/dL (0.55-1.02)
[2018-10-18 07:20] VITALS: BP 111/77
[2018-10-18] MEDS: INSULIN LISPRO 100 UNITS/ML, PEN SQ-INSULIN SCH ×4 (07:28→21:00)
[2018-10-18] MEDS: SODIUM CHLORIDE FLUSH 10ML SYR IVF SCH ×2 (09:02→21:18)
[2018-10-18] MEDS: SODIUM BICARBONATE 650 MG TABLET PO SCH ×2 (09:03→16:27)
[2018-10-18] MEDS: INSULIN GLARGINE 100 UNITS/ML, PEN SQ-INSULIN SCH ×2 (09:03→21:16)
[2018-10-18] MEDS: GEMFIBROZIL 600 MG TABLET PO SCH ×2 (09:03→21:12)
[2018-10-18] MEDS: FERROUS GLUCONATE 324 MG TABLET PO SCH ×2 (09:03→16:27)
[2018-10-18 13:03] VITALS: BP 113/75
[2018-10-18] MEDS: ERGOCALCIFEROL 50,000 UNIT CAPSULE PO SCH (14:08)
[2018-10-18] MEDS: ENOXAPARIN 40 MG/0.4 ML SQ SCH (16:27)
[2018-10-18] MEDS: POTASSIUM CHLORIDE 20 MEQ TAB.ER.PRT PO SCH (16:27)
[2018-10-18 20:00] VITALS: BP 115/80
[2018-10-19 02:00] VITALS: BP 112/73
[2018-10-19 05:45] LABS: BASOPHILS # (AUTO) 0.03 x10^3/uL (0-0.1); BASOPHILS % (AUTO) 0 % (0-1); EOSINOPHILS # (AUTO) 0.19 x10^3/uL (0-0.4); EOSINOPHILS % (AUTO) 2 % (1-7); LYMPHOCYTES # (AUTO) 2.53 x10^3/uL (1-3.4); LYMPHOCYTES % (AUTO) 26 % (22-44); MD NO; MEAN CORPUSCULAR HEMOGLOBIN 27.6 pg (27.0-34.8); MEAN CORPUSCULAR HGB CONC 32.5 g/dL (32.4-35.8); MEAN CORPUSCULAR VOLUME 84.8 fL (80-100); MEAN PLATELET VOLUME 7.6 fL (7.4-10.4); MONOCYTES # (AUTO) 0.46 x10^3/uL (0.2-0.8); MONOCYTES % (AUTO) 5 % (2-9); NEUTROPHILS # (AUTO) 6.61 x10^3/uL (1.8-6.8); NEUTROPHILS % (AUTO) 67 % (42-75); PLATELET COUNT 678 x10^3/uL (130-400); RED CELL DISTRIBUTION WIDTH 13.9 % (9.6-15.2)
[2018-10-19 06:00] LABS: ALANINE AMINOTRANSFERASE 14 U/L (12-78); ALBUMIN 2.7 g/dL (3.4-5.0); ANION GAP 8 mmol/L (5-15); CALCIUM 9.3 mg/dL (8.5-10.1); CHLORIDE 109 mmol/L (98-107); CREATININE 0.63 mg/dL (0.55-1.02)
[2018-10-19 06:02] LABS: ALKALINE PHOSPHATASE 144 U/L (45-117); BILIRUBIN,TOTAL 0.3 mg/dL (0.2-1.0); TOTAL PROTEIN 7.8 g/dL (6.4-8.2)
[2018-10-19 07:30] VITALS: BP 118/77
[2018-10-19] MEDS: INSULIN LISPRO 100 UNITS/ML, PEN SQ-INSULIN SCH ×2 (08:01→11:15)
[2018-10-19] MEDS: POTASSIUM CHLORIDE 20 MEQ TAB.ER.PRT PO SCH (08:02)
[2018-10-19] MEDS: GEMFIBROZIL 600 MG TABLET PO SCH (08:03)
[2018-10-19] MEDS: FERROUS GLUCONATE 324 MG TABLET PO SCH (08:03)
[2018-10-19] MEDS: INSULIN GLARGINE 100 UNITS/ML, PEN SQ-INSULIN SCH (08:12)
[2018-10-19] MEDS: SODIUM CHLORIDE FLUSH 10ML SYR IVF SCH (08:24)
[2018-10-19] MEDS ORDERED: ERGO500017 PO (13:13)
[2018-10-19] MEDS ORDERED: INSU100I13 SQ-INSULIN (13:13)
[2018-10-19] MEDS ORDERED: GEMF600T8 PO (13:13)
[2018-10-19] MEDS ORDERED: FERR325T16 PO (13:13)
[2018-10-19] MEDS ORDERED: INSU100I11 SQ-INSULIN (13:13)
== END 2018-10-19 15:03 | disposition home or self-care (01) | DRG 438 ==
LOC: ED 14:15 → EDIP 14:26 → 3NW 20:59 → CCU 10-06 17:35 → 4WST 10-10 16:49
PROVIDERS: ADMIT Hospitalist; ATTEND Hospitalist
PROC: 02H633Z Insertion of Infusion Device into Right Atrium, Percutaneous Approach (ICD-10-PCS; principal; 2018-10-06)
PROC: B244ZZZ Ultrasonography of Right Heart (ICD-10-PCS; 2018-10-06)
DX: K85.80 Other acute pancreatitis without necrosis or infection (principal); E10.10 Type 1 diabetes mellitus with ketoacidosis without coma; G93.41 Metabolic encephalopathy; N17.0 Acute kidney failure with tubular necrosis; E46 Unspecified protein-calorie malnutrition; E87.0 Hyperosmolality and hypernatremia; E87.1 Hypo-osmolality and hyponatremia; N39.0 Urinary tract infection, site not specified; R65.10 Systemic inflammatory response syndrome (SIRS) of non-infectious origin without acute organ dysfunction; B96.20 Unspecified Escherichia coli [E. coli] as the cause of diseases classified elsewhere; D64.9 Anemia, unspecified; D72.825 Bandemia; E55.9 Vitamin D deficiency, unspecified; E66.9 Obesity, unspecified; E78.1 Pure hyperglyceridemia; E78.5 Hyperlipidemia, unspecified; E86.0 Dehydration; E87.5 Hyperkalemia; E87.6 Hypokalemia; I45.81 Long QT syndrome; K76.0 Fatty (change of) liver, not elsewhere classified; N20.0 Calculus of kidney; Z79.4 Long term (current) use of insulin; Z68.30 Body mass index [BMI] 30.0-30.9, adult; Z83.3 Family history of diabetes mellitus; Z91.013 Allergy to seafood
CPT/HCPCS: 36415; 36514; 36556; 71045; 74176; 76700; 76937; 77001; 80048; 80053; 80061; 81001; 81003; 81025; 82010; 82150; 82306; 82330; 82436; 82570; 82728; 82803; 82947; 82962; 83036; 83540; 83550; 83605; 83690; 83735; 83935; 84100; 84133; 84156; 84300; 84439; 84443; 84478; 84484; 84550; 85025; 85045; 85651; 86140; 87077; 87081; 87086; 87186; 87324; 93005; 96374; 96375; 96376; C1894; G0378; J0696; J1170; J1650; J1815; J2405; J3480; J7070; P9045; C1751; C9113; J0610; J1642; J2270; J3475; J7030; J7040; J7050; J7120

== ENCOUNTER 2020-10-20 04:49 | Emergency (ER) | payer OTHER ==
[~2020-10-20] VITALS: Ht 165.1 cm; Wt 108.1 kg
[~2020-10-20 04:49] MED LIST changes: +ERGO500017 PO; +FERR325T16 PO; +GEMF-31 PO; +INSU100I11 SQ-INSULIN; +INSU100I13 SQ-INSULIN; -OXYC-302 PO; +OXYC1TAB14 PO
[2020-10-20] MEDS ORDERED: SODIUM CHLORIDE 0.9% 1,000ML IVBOLUS ONE (06:00)
[2020-10-20] MEDS ORDERED: SODIUM CHLORIDE FLUSH 10ML SYR IVF ONE (06:00)
[2020-10-20 06:14] LABS: BASOPHILS % (AUTO) 1 % (0-1); EOSINOPHILS % (AUTO) 1 % (1-7); LYMPHOCYTES % (AUTO) 21 % (22-44); MEAN CORPUSCULAR HEMOGLOBIN 28.2 pg (27.0-34.8); MONOCYTES % (AUTO) 3 % (2-9); NEUTROPHILS % (AUTO) 75 % (42-75); PLATELET COUNT 387 x10^3/uL (130-400); RED BLOOD COUNT 4.85 x10^6/uL (3.82-5.3); RED CELL DISTRIBUTION WIDTH 13.6 % (9.6-15.2)
[2020-10-20 06:15] LABS: MD NO
[2020-10-20 06:15] LABS: MICROSCOPIC AUTO
[2020-10-20] MEDS ORDERED: MORPHINE SULFATE 4 MG/ML, 1ML ONE (06:19)
[2020-10-20] MEDS ORDERED: ONDANSETRON 2MG/ML, 2ML ONE (06:19)
[2020-10-20 06:24] LABS: ALANINE AMINOTRANSFERASE 84 U/L (12-78); ALBUMIN 3.8 g/dL (3.4-5.0); ANION GAP 11 mmol/L (5-15); CALCIUM 9.9 mg/dL (8.5-10.1); CHLORIDE 101 mmol/L (98-107); CHOLESTEROL, TOTAL 228 mg/dL (140-239); CREATININE 0.76 mg/dL (0.55-1.02)
[2020-10-20 06:30] LABS: ALKALINE PHOSPHATASE 113 U/L (45-117); BILIRUBIN,TOTAL 0.4 mg/dL (0.2-1.0); CHOL/HDL RATIO 6.3; HDL CHOL % 16 % (28-40); HDL CHOLESTEROL (DIRECT) 36 mg/dL (40-60); TOTAL PROTEIN 8.7 g/dL (6.4-8.2); TRIGLYCERIDES 522 mg/dL (50-200)
[2020-10-20] MEDS ORDERED: ONDANSETRON 2MG/ML, 2ML IVPush ONE (06:30)
[2020-10-20] MEDS ORDERED: MORPHINE SULFATE 4 MG/ML, 1ML IVPush ONE (06:30)
--- NOTE | 2020-10-20 06:32 | NUR ---
PT STATES ABD PAIN IN BOTH SIDES STARTED LASTED NIGHT AROUND 2200. PAIN IS ABOUT 8/10 NOW AND WORSENING. STATES THAT SHE VOMITTED ONCE. PIV PLACED AND IVF INFUSING. PT MEDICATED FOR PAIN PER EMAR PRIOR TO ULTRASOUND. US AT BEDSIDE AT THIS TIME.
[2020-10-20 06:46] LABS: ACETONE, SERUM Negative (Negative)
--- NOTE | 2020-10-20 06:57 | NUR ---
REPORT TO SARABJIT BAIRES
--- NOTE | 2020-10-20 07:11 | NUR ---
REPORT RECEIVED FROM SARABJIT GONZALES. PT REPORTS ABD PAIN REDUCED TO 2/10, SATISFACTORY. PT IS A&O, RESPS EVEN AND UNLABORED. BP AND SPO2 MONITORS IN PLACE. CALL LIGHT IN REACH. AWAITING US AND DISPO.
[2020-10-20] MEDS ORDERED: MAALOX/HYOSCYAMINE/LIDOCAINE 45 ML BTL ONE (08:29)
[2020-10-20] MEDS ORDERED: MAALOX/HYOSCYAMINE/LIDOCAINE 45 ML BTL PO ONE (08:30)
[2020-10-20 08:31] VITALS: BP 130/80
--- NOTE | 2020-10-20 08:31 | NUR ---
RESULTS AND POC EXPLAINED TO PT BY EDMD ALMENDAREZ, PT C/O PERSISTENT ABD PAIN. EDMD ORDERED GI COCKTAIL WHICH HAS BEEN ADMIN PER EMAR, PT TOLERATING WELL. PT TO BE DC'D PENDING REASSESSMENT.
--- NOTE | 2020-10-20 09:01 | NUR ---
MD AWARE OF REPEAT GLUCOSE. PT REPORTS ABD PAIN LEVEL IS 2/10 AT THIS TIME, TOLERATING PO'S. PT IS A&O, RESPS EVEN AND UNLABORED. PIV DC'D WITH TIP INTACT. PT INSTRUCTED NOT TO DRIVE TODAY D/T MORPHINE ADMINISTERED EARLIER, STATES SHE IS TAKING CAB HOME. PT GIVEN DC INSTRUCTIONS INCLUDING PCP AND GENERAL SURGEON FOLLOW UP, WELL RETURN CRITERIA. PT EDUCATED REGARDING DC SCRIPT FOR ZOFRAN. PT AMBULATORY TO DC DESK WITH STEADY GAIT, ALL QUESTIONS ANSWERED.
== END 2020-10-20 08:56 | disposition home or self-care (01) ==
LOC: ED 06:21
DX: K80.20 Calculus of gallbladder without cholecystitis without obstruction (principal); R10.11 Right upper quadrant pain; R10.13 Epigastric pain; E11.65 Type 2 diabetes mellitus with hyperglycemia; R11.2 Nausea with vomiting, unspecified
CPT/HCPCS: 36415; 76700; 80053; 80061; 81001; 82010; 82962; 83036; 83690; 84703; 85025; 96361; 96374; 96375; 99284; J2270; J2405; J7030